=== PATIENT | female | born 1980 | race Caucasian/White ===

== ENCOUNTER 2016-04-20 15:35 | Emergency (ER) | payer OTHER ==
[~2016-04-20] VITALS: Ht 157.5 cm; Wt 79.4 kg
[2016-04-20 16:58] LABS: BASOPHILS # (AUTO) 0.1 /CMM (0.0-0.2); BASOPHILS % (AUTO) 1.1 % (0.0-2.0); DIFF TOTAL % 100 %; EOSINOPHILS # (AUTO) 0.4 /CMM (0.0-0.7); EOSINOPHILS % (AUTO) 5.9 % (0.0-6.0); HEMATOCRIT 45 % (33-45); LYMPHOCYTES # (AUTO) 2.5 /CMM (0.8-4.8); LYMPHOCYTES % (AUTO) 33.2 % (20.0-44.0); MEAN CORPUSCULAR HEMOGLOBIN 31 PG (26.0-33.0); MEAN CORPUSCULAR HGB CONC 33 g/dl (31.0-36.0); MEAN CORPUSCULAR VOLUME 91 fL (82-100); MONOCYTES # (AUTO) 0.5 /CMM (0.1-1.30); MONOCYTES % (AUTO) 6.3 % (2.0-12.0); NEUTROPHILS # (AUTO) 3.9 /CMM (1.8-8.9); NEUTROPHILS % (AUTO) 53.5 % (43.0-81.0); PLATELET COUNT (AUTO) 411 /CMM (150-450); RED BLOOD CELL COUNT(AUTO) 4.93 MIL/uL (4.0-5.2); WHITE BLOOD COUNT (AUTO) 7.4 K/uL (4.3-11.0)
[2016-04-20 17:00] LABS: KETONES,URINE Negative (NEGATIVE); LEUKOCYTE ESTERASE ,URINE Negative (NEGATIVE); PH,URINE 6.5 (5.0-8.0)
[2016-04-20] MEDS ORDERED: PANTOPRAZOLE 40 MG VIAL IV ONE (17:00)
[2016-04-20] MEDS ORDERED: IV NS 0.9% 500 ML BAG IV ONE (17:00)
[2016-04-20] MEDS ORDERED: HYDROMORPHONE 1 MG/1 ML DISP.SYRIN IV ONE (17:00)
[2016-04-20 17:01] LABS: ADD UA MICROSCOPIC YES
[2016-04-20 17:14] LABS: ALANINE AMINOTRANSFERASE 92 U/L (12-78); ALBUMIN 3.8 g/dL (3.4-5.0); ANION GAP 13 (5-14); ASPARTATE AMINOTRANSFERASE 48 U/L (15-37); BILIRUBIN,DIRECT 0.1 mg/dL (0.0-0.2); BILIRUBIN,TOTAL 0.3 mg/dL (0.2-1.0); CARBON DIOXIDE 26 mmol/L (21-32); CHLORIDE 105 mmol/L (98-107); GFR 63 mL/min (>60); GLUCOSE 90 mg/dL (74-106); INDIRECT BILIRUBIN 0.2 mg/dL (0.0-1.1); POTASSIUM 4.1 mmol/L (3.5-5.1); SODIUM SERUM 140 mmol/L (136-145); TOTAL PROTEIN, SERUM 7.5 g/dL (6.4-8.2); UREA NITROGEN, BLOOD 12 mg/dL (7-18)
[2016-04-20 17:16] LABS: TROPONIN I < 0.017 ng/mL (0.00-0.056)
[2016-04-20 17:20] LABS: LACTIC ACID 1.3 mmol/L (0.4-2.0)
[2016-04-20] MEDS ORDERED: HYDROMORPHONE 1 MG/1 ML DISP.SYRIN ONE (17:20)
[2016-04-20] MEDS ORDERED: IV SET PRIMARY 1 EA INFUS.SET MC ONE (17:20)
[2016-04-20] MEDS ORDERED: IV NS 0.9% 500 ML IV ONE (17:20)
[2016-04-20] MEDS ORDERED: PANTOPRAZOLE 40 MG VIAL ONE (17:20)
[2016-04-20 17:32] LABS: INR 0.91 (0.87-1.13); PROTHROMBIN TIME 9.6 SECS (9.5-12.7)
[2016-04-20 17:33] LABS: ADD URINE CULTURE NO; WBC,URINE 0-2 /HPF (0-3)
[2016-04-20 17:42] LABS: PREGNANCY TEST URINE QUAL NEGATIVE (NEGATIVE)
[2016-04-20] MEDS ORDERED: CEFTRIAXONE 1 G in IV D5W 50 ML IV ONE (18:00)
[2016-04-20 18:12] VITALS: BP 125/85
== END 2016-04-20 18:12 | disposition home or self-care (01) ==
LOC: ER 15:37
DX: R10.12 Left upper quadrant pain (principal); F41.9 Anxiety disorder, unspecified; F98.8 Other specified behavioral and emotional disorders with onset usually occurring in childhood and adolescence; Z88.6 Allergy status to analgesic agent
CPT/HCPCS: 36415; 80048-TC; 80076-TC; 81000-TC; 83605-TC; 83690-TC; 84484-TC; 84703-TC; 85025-TC; 85730-TC; A4606; C9113; J1170; J7040; Z7610